=== PATIENT | female | born 1980 | race Hispanic/Latino ===

== ENCOUNTER 2017-03-13 21:00 | Inpatient (IN) | payer OTHER ==
--- NOTE | 2017-03-13 21:04 | Emergency Department Report ---
HPI - General Time Seen by Provider: 03/13/17 21:02 - HPI HPI: This is a 36-year-old female who presents the emergency department by EMS from home with complaint of suspected stroke. The patient was last seen normal around 7:45 PM. The called EMS when he noticed the patient was having left-sided weakness and trouble speaking. She has a past medical history of hypertension but is noncompliant with her medications and presents with elevated blood pressure. The patient doesn't fact have some trouble getting words out and therefore is a poor historian. She also does display some left-sided weakness. She did not receive anything for symptoms prior to presentation nor in route. ED Past Medical Hx - Medications Home Medications: Home Medications Medication Instructions Recorded Confirmed Last Taken Type No Known Home Medications [No 03/13/17 03/13/17 Unknown History Reported Home Medications] ED Review of Systems ROS: Stated complaint: POSS STROKE Other details as noted in HPI Comment: All other systems reviewed and negative Constitutional: denies: chills, fever Eyes: denies: eye pain, eye discharge, vision change ENT: denies: ear pain, throat pain Respiratory: denies: cough, shortness of breath, wheezing Cardiovascular: denies: chest pain, palpitations Gastrointestinal: denies: abdominal pain, nausea, diarrhea Genitourinary: denies: urgency, dysuria, discharge Musculoskeletal: denies: back pain, joint swelling, arthralgia Skin: denies: rash, lesions Neurological: headache, weakness, other (aphasia) Physical Exam - Physical Exam Physical Exam: GENERAL: The patient is well-developed well-nourished. HEENT: Normocephalic. Atraumatic. Extraocular motions are intact. Patient has moist mucous membranes. Pupils equal reactive to light bilaterally. Patient has fatigable horizontal nystagmus. There is no gaze preference. NECK: Supple. Trachea is midline. CHEST/LUNGS: Clear to auscultation. There is no respiratory distress noted. HEART/CARDIOVASCULAR: Regular. There is no tachycardia. There is no gallop rub or murmur. ABDOMEN: Abdomen is soft, nontender. Patient has normal bowel sounds. There is no abdominal distention. SKIN: Skin is warm and dry. NEURO: The patient is awake, alert, and oriented. The patient is cooperative. The patient has stuttering speech. There is almost complete flaccid paralysis of the left upper extremity. She is able to lift up her left lower extremity off the gurney but is unable to keep it elevated and falls back to the gurney. There is subjective decreased sensation to the left side of the body when compared to the right. MUSCULOSKELETAL: There is no tenderness or deformity. There is no limitation range of motion. There is no evidence of acute injury. ED Course - Consultations Consultation #1: I spoke with the telemedicine neurologist, Dr. Fortune, who then did a consultation via the telemedicine screen in the room. He then just called back and says that this appears more consistent with something like a complex migraine but suggested a stat CT angiography of the head and neck. There is some type of occlusion or thrombus seen, he is to be recontacted, otherwise the patient should be admitted to the hospital and have an MRI and further evaluation. 03/13/17 21:44 ED Medical Decision Making - Lab Data Result diagrams: 03/13/17 21:00 03/13/17 21:00 - EKG Data -: EKG Interpreted by Mi EKG shows normal: sinus rhythm, axis, intervals, QRS complexes, ST-T waves Rate: normal - EKG Data When compared to previous EKG there are: previous EKG unavailable Interpretation: normal EKG - Radiology Data Radiology results: report reviewed CT of the head does not show any acute process including no hemorrhage, mass, shift, diffuse edema or skull fracture. CT angiography of the head and neck does not show any bleed, thrombus or occlusion, or any acute process. - Medical Decision Making 36-year-old female presents with left-sided deficits as well as a left-sided headache with concern for an acute CVA. The patient would have been in the TPA window, but was seen by the telemedicine neurologist Dr. Fortune who did not feel that this fits the typical picture for a CVA and therefore did not recommend TPA administration. He did recommend CT angiography of the head and neck and thinks that is most likely consistent with a complex migraine. CT of the head without contrast, CT angiography of the head and neck, all came back negative without any acute process or etiology of the patient's symptoms. She has shown some improvement. The patient has had some hypertensive issues while she has been here and has required antihypertensives. Vital signs otherwise been stable throughout her ED course including being afebrile. She will be admitted to the hospital for further evaluation and has been accepted by the hospitalist, Dr. Barnes. - Differential Diagnosis CVA, TIA, complex migraine Critical Care Time: No Critical care attestation.: If time is entered above; I have spent that time in minutes in the direct care of this critically ill patient, excluding procedure time. ED Disposition Clinical Impression: Hypertensive urgency, Left-sided sensory deficit present, Left-sided weakness Migraine Qualifiers: Migraine type: unspecified Status migrainosus presence: without status migrainosus Intractability: not intractable Qualified Code(s): G43.909 - Migraine, unspecified, not intractable, without status migrainosus Disposition: OP ADMITTED IP TO THIS HOSP Is pt being admited?: Yes Condition: Stable Time of Disposition: 01:47
[2017-03-13 21:11] LABS: Basophils % (Auto) 0.9 % (0.0-1.8); Eosinophils % (Auto) 2.7 % (0.0-4.3); Hematocrit 39.9 % (30.3-42.9); Hemoglobin 13.8 gm/dl (10.1-14.3); Mean Corpuscular HGB Conc 35 % (30-34); Mean Corpuscular Hemoglobin 30 pg (28-32); Mean Corpuscular Volume 87 fl (79-97); Platelet Count 273 K/mm3 (140-440); Red Blood Count 4.59 M/mm3 (3.65-5.03); White Blood Count 9.3 K/mm3 (4.5-11.0)
[2017-03-13 21:21] LABS: INR 1.06 (0.87-1.13)
[2017-03-13 21:22] LABS: Partial Thromboplastin Time 30.9 Sec. (24.2-36.6)
--- NOTE | 2017-03-13 21:23 | Cat Scan Report ---
FINAL REPORT PROCEDURE: CT HEAD/BRAIN WO CON TECHNIQUE: Computerized tomography of the head was performed without contrast material. HISTORY: suspected stroke COMPARISON: No prior studies are available for comparison. FINDINGS: Skull and scalp: Normal. Paranasal sinuses: Normal. Ventricles and subarachnoid spaces: Normal. Cerebrum: No evidence of hemorrhage, acute infarction or mass . Cerebellum and brainstem: No evidence of hemorrhage, acute infarction or mass. Vasculature: Normal. Comments: None. IMPRESSION: Normal Examination
--- NOTE | 2017-03-13 21:30 | Admit Criteria Form ---
Admission Criteria Documentation: HYPERTENSION Clinical Indications for Admission to Inpatient Care ( Place "X" for any and all applicable criteria): Admission is indicated for ANY ONE of the following(1)(2)(3)(4): [ ]I. Hypertensive emergency, with evidence of acute and progressing target organ disease as indicated by ANY ONE of the following: [ ]a) Hypertensive encephalopathy (eg, confusion, altered mental status) [ ]b) Cerebral infarction [ ]c) Intracranial hemorrhage [ ]d) Myocardial ischemia or infarction [ ]e) Pulmonary edema [ ]f) Aortic dissection [ ]g) Seizure [ ]h) Acute renal insufficiency [ ]i) Papilledema [ ]j) Microangiopathic hemolytic anemia [ ]II. Adrenergic crisis (eg, severe hypertension due to pheochromocytoma crisis, cocaine or amphetamine intoxication, or clonidine withdrawal) [X ]III. Severe hypertension (SBP greater than 180 mmHg or DBP greater than 110 mmHg or greater than the 95th percentile for age, gender, and height in pediatric patients) that cannot be controlled (eg, to SBP less than 160 mmHg and DBP less than 100 mmHg in adults) by treatment with oral medication in emergency department or observation care Extended stay beyond goal length of stay may be needed for(11)(12)(13): [ ]a) Persistent hypertensive encephalopathy [ ]b) Continuation of pulmonary edema [ ]c) Recurring or persistent severe hypertension [ ]d) Target organ damage (eg, angina, stroke, aortic dissection) [ ]e) Associated renal insufficiency The original [employer] content created by [employer] has been revised. The portions of the content which have been revised are identified through the use of italic text or in bold, and [facility] has neither reviewed nor approved the modified material. All other unmodified content is copyright [employer] [employer]. Please see references footnoted in the original [employer] [facility] [employer] edition 2016 Admission Criteria Met: Yes
[2017-03-13 21:31] LABS: Alanine Aminotransferase 11 units/L (7-56); Albumin 3.9 g/dL (3.9-5); Albumin/Globulin Ratio 1.6 %; Alkaline Phosphatase 99 units/L (35-129); Anion Gap 16 mmol/L; Blood Urea Nitrogen 15 mg/dL (7-17); Calcium 8.8 mg/dL (8.4-10.2); Carbon Dioxide 22 mmol/L (22-30); Chloride 104.2 mmol/L (98-107); Creatine Kinase 65 units/L (30-135); Glucose 111 mg/dL (65-100); Potassium 3.6 mmol/L (3.6-5.0); Sodium 139 mmol/L (137-145); Total Protein 6.4 g/dL (6.3-8.2)
[2017-03-13 21:33] LABS: Creatine Kinase MB < 1.0 ng/mL (0.0-4.0)
[2017-03-13] MEDS ORDERED: NACL ONE (22:15)
[2017-03-13] MEDS ORDERED: MORPHINE IV ONE ×2 (22:15→23:41)
[2017-03-13] MEDS ORDERED: MORPHINE ONE (22:20)
--- NOTE | 2017-03-14 00:10 | Cat Scan Report ---
FINAL REPORT PROCEDURE: CT ANGIO HEAD TECHNIQUE: Computerized tomographic angiography of the head was performed after the IV injection of iodinated nonionic contrast including image processing. The image data was postprocessed using 2-dimensional multiplanar reformatted (MPR) and 3-dimensional (MIP and/or volume rendered) techniques. HISTORY: left sided weakness COMPARISON: No prior studies are available for comparison. FINDINGS: Cerebrum: No evidence of hemorrhage, acute ischemia or mass. Cerebellum: No evidence of hemorrhage, acute ischemia or mass. Subarachnoid spaces and ventricles: Normal. Intracranial vessels: Carotid siphon: Normal. Anterior cerebral: Normal. Middle cerebral: Normal. Posterior cerebral:Normal. Vertebral arteries including basilar: The left vertebral artery is dominant. The basilar artery is normal. Aneurysms: None. Dural sinuses: Normal. IMPRESSION: Normal Examination.
--- NOTE | 2017-03-14 00:29 | Cat Scan Report ---
FINAL REPORT PROCEDURE: CT ANGIO NECK TECHNIQUE: Computerized tomographic angiography of the neck was performed after the IV injection of iodinated nonionic contrast including image processing. The image data was postprocessed using 2-dimensional multiplanar reformatted (MPR) and 3-dimensional (MIP and/or volume rendered) techniques. HISTORY: left sided weakness COMPARISON: No prior studies are available for comparison. Note: Assessment of carotid artery stenosis is based on measurement of the distal internal carotid artery diameter as the denominator for stenosis calculations and the [place] Symptomatic Carotid Endarterectomy Trial (NASCET) stenosis criteria . CPT 3100F FINDINGS: Sinuses: Normal . Non vascular cervical structures: No significant abnormality . Aortic arch: Normal . Right carotid artery: Normal . Left carotid artery: Normal . Vertebral arteries: The left vertebral artery is dominant.. IMPRESSION: Normal Examination
[2017-03-14 02:38] LABS: Urine Drugs of Abuse Note Disclamer
[2017-03-14 02:46] LABS: Bilirubin,Urine NEG (Negative); Blood,Urine NEG (Negative); Ketones,Urine NEG (Negative); Leukocyte Esterase,Urine TR (Negative); Mucus,Urine 1+ /HPF; Nitrite,Urine NEG (Negative); Protein,Urine <15 mg/dL mg/dL (Negative); Urobilinogen,Urine < 2.0 mg/dL (<2.0)
[2017-03-14] MEDS ORDERED: APRESOLINE IV PRN (02:52)
[2017-03-14] MEDS ORDERED: MILK OF MAGNESIA PO PRN (02:52)
[2017-03-14] MEDS ORDERED: DULCOLAX PR PRN (02:52)
[2017-03-14] MEDS ORDERED: ZOFRAN IV PRN (02:52)
[2017-03-14] MEDS ORDERED: TYLENOL PO PRN (02:52)
[2017-03-14] MEDS ORDERED: SODIUM CHLORIDE FLUSH SYRINGE 10 ML IV PRN (02:52)
--- NOTE | 2017-03-14 02:57 | History and Physical Report ---
History of Present Illness Date of examination: 03/14/17 History of present illness: 36-year-old woman with a history of sciatica, endometriosis, chronic back pain, depression, anxiety comes emergency room with complaints of left-sided weakness and numbness. Patient stated over the last 2 weeks she has been feeling fatigued, palpitation. She checked her blood [facility] at [facility], it was systolic 180s on 2 occasions. Today her fatigue worsened, also experienced numbness of the left side, weakness, dizziness and headache on the left with more patient. She had difficulty expressing herself. Patient denies chest pain, shortness of breath, cough, abdominal pain, hematochezia, dysuria, frequency, dysarthria, fever chills, polydipsia polyuria , hot or cold intolerance, easy bruisability, or rash or bleeding from mucosal membrane, rhinorrhea, epistaxis, earache, tinnitus, blurry vision, eye discharge , Other review of systems negative PAST SURGICAL HISTORY: 2, cholecystectomy, appendectomy, tonsillectomy SOCIAL HISTORY:smoke half pack a day, occasional alcohol, no drugs FAMILY HISTORY: Hypertension Medications and Allergies Allergies Allergy/AdvReac Type Severity Reaction Status Date / Time No Known Allergies Allergy Unverified 03/13/17 21:04 Home Medications Medication Instructions Recorded Confirmed Last Taken Type No Known Home Medications [No 03/13/17 03/13/17 Unknown History Reported Home Medications] Exam - Physical Exam Narrative exam: Gen. appearance: Patient lying in bed, no apparent distress HEENT: Normocephalic, atraumatic, pupils equally round and reactive to light, extraocular movement intact, and no sclericterus,. No JVD or thyromegaly or nodule,neck supple, no carotid bruit ,mucous membranes moist, no exudate or erythema Heart: S1, S2, regular rate and rhythm Lungs: Clear to auscultation bilaterally, breathing comfortable Abdomen: Positive bowel sounds, nontender, nondistended, no organomegaly Extremity: No edema, cyanosis, clubbing Skin: No rash, nodules, warm, dry Neuro: Oriented 3, cranial nerves II-12 intact, speech is fluent, left upper and lower extremity 4 over 5 , decreased sensation on the left - Constitutional Vitals: Temp Pulse Resp BP Pulse Ox 98.4 F 96 H 20 134/60 99 03/13/17 21:15 03/14/17 01:41 03/14/17 01:41 03/14/17 01:41 03/14/17 01:41 Results - Labs CBC & Chem 7: 03/13/17 21:00 03/13/17 21:00 Labs: Abnormal lab results 03/13/17 03/13/17 03/14/17 Range/Units 21:00 21:00 02:30 MCHC 35 H (30-34) % Creatinine 0.6 L (0.7-1.2) mg/dL Glucose 111 H (65-100) mg/dL Ur Specific [place] 1.060 H (1.003-1.030) - Imaging and Cardiology EKG: image reviewed CT Scan - head: report reviewed Assessment and Plan CTA head and neck normal CVA versus hypertensive urgency Hypertension malignant, new onset Depression Anxiety Obesity Chronic back pain History of endometriosis Admits medicine Do neurochecks, swallow screen Start IV hydralazine as needed for blood pressure control Obtain MRI of the head, echo Consult neurology physical, occupational therapy Aspirin, statin, DVT prophylaxis
[2017-03-14 03:38] LABS: Creatine Kinase 60 units/L (30-135)
[2017-03-14 03:46] LABS: Creatine Kinase MB < 1.0 ng/mL (0.0-4.0)
[2017-03-14] MEDS ORDERED: NORCO 10/325 PO ONE (06:30)
--- NOTE | 2017-03-14 07:34 | XRay Report ---
PORTABLE CHEST: CVA protocol An AP portable view of the chest demonstrates a normal cardiac contour considering the limits of this technique. The lungs are clear with no evidence of infiltrate, fluid or failure. IMPRESSION: Normal portable chest.
--- NOTE | 2017-03-14 09:59 | Magnetic Resonance Report ---
MRI of the brain without contrast. History: Stroke. Procedure: Routine brain protocol without contrast Findings: The posterior fossa is normal. The ventricles are normal in size and contour. There are no masses or extra-axial collections. There are no areas of restricted diffusion. The roberts-white matter junction is normal. The pituitary gland is normal. The visualized extremity structures are unremarkable. Impression: Normal study.
[2017-03-14] MEDS ORDERED: ASPIRIN PO SCH (10:00)
[2017-03-14] MEDS ORDERED: LOVENOX SUB-Q SCH (10:00)
--- NOTE | 2017-03-14 14:04 | History and Physical Report ---
History of Present Illness Date of examination: 03/14/17 Date of admission: 03/14/17 02:52 Chief complaint: headache, left side numbness and weakness. History of present illness: 36-year-old right haned female with a past medical history of sciatica , endometriosis, chronic back pain, depression, anxiety comes emergency room with complaints of left-sided weakness and numbness. Patient stated over the last 2 weeks she has been feeling fatigued, palpitation. She checked her blood pressure at [facility], it was systolic 180s on 2 occasions. Yesterday her fatigue worsened, also experienced numbness of the left side, weakness, dizziness and headache on the left. She also complaints of left side vision blurry. Per admission physician, she has broken speech when she was in the ER. Right now her speech is better. She is stable and improved after admission. Past History Past Medical History: other (chronic pains, depression, 36-year-old woman with a history of sciatica, endometriosis, chronic back pain, depression, anxiety. ) Past Surgical History: appendectomy, cholecystectomy, , Other (Foot surgery.) Social history: smoking, other (drink alcohol. No illicit drug abuse.) Family history: CAD, cancer, diabetes, hypertension, stroke Medications and Allergies Allergies Allergy/AdvReac Type Severity Reaction Status Date / Time No Known Allergies Allergy Unverified 03/13/17 21:04 Home Medications Medication Instructions Recorded Confirmed Last Taken Type Diazepam Tab [Valium] 2 mg PO 03/14/17 Unknown History HYDROcodone/APAP 10-325 [[place] 1 each PO Q6HR PRN 03/14/17 03/14/17 Unknown History 10] Ibuprofen [Motrin 800 MG tab] 800 mg PO Q8H PRN 03/14/17 03/14/17 Unknown History Naprosyn 03/14/17 Unknown History busPIRone [Buspar] 03/14/17 Unknown History Active Meds: Active Medications Acetaminophen (Tylenol) 650 mg PO Q4H PRN PRN Reason: Pain, Mild (1-3) Aspirin (Aspirin) 325 mg PO QDAY [facility] Last Admin: 03/14/17 11:25 Dose: Not Given Bisacodyl (Dulcolax) 10 mg AK QDAY PRN PRN Reason: Constipation Enoxaparin Sodium (Lovenox) 40 mg SUB-Q QDAY [facility] Last Admin: 03/14/17 11:23 Dose: 40 mg Hydralazine HCl (Apresoline) 5 mg IV Q6H PRN PRN Reason: Keep SBP between 160-185 mm Hg Magnesium Hydroxide (Milk Of Magnesia) 30 ml PO Q4H PRN PRN Reason: Constipation Ondansetron HCl (Zofran) 4 mg IV Q8H PRN PRN Reason: N/V unrelieved by Reglan Simvastatin (Zocor) 20 mg PO QHS [facility] Sodium Chloride (Sodium Chloride Flush Syringe 10 Ml) 10 ml IV PRN PRN PRN Reason: LINE FLUSH Review of Systems All systems: negative (obesity, left side weakness and numbness, Left side vision loss.) Physical Examination - Vital Signs Vital Signs: Vital Signs Temp Pulse Resp BP Pulse Ox 98.4 F 86 18 145/80 99 03/13/17 21:15 03/13/17 21:15 03/13/17 21:15 03/13/17 21:15 03/13/17 21:15 - Constitutional General appearance: comfortable - EENT EENT: Present: PERRL, TM abnormal - Respiratory Respiratory: Present: lungs clear, normal breath sounds, no respiratory distress - Cardiovascular Cardiovascular: Present: regular rate, normal S1, normal S2 Extremities: Present: no peripheral edema bilatateraly, no clubbing, cyanosis, no inflammation - Gastrointestinal Gastrointestinal: Present: soft, non-tender, tender - Integumentary Integumentary: Present: normal - Neurologic Cranial nerve examination: PERRL, EOMI Speech examination: intact Detailed motor examination: grossly full strength in Motor examination - right side: 5/5: biceps, triceps, wrist flexion, wrist extension, cotton bag sewer, hip flexors, knee extensors, dorsiflexion, toe extension (EHL) , plantarflexion Motor examination - left side: 3/5: biceps, triceps, wrist flexion, wrist extension, cotton bag sewer, hip flexors, knee extensors, dorsiflexion, toe extension (EHL) , plantarflexion Detailed sensory examination: other (Left side hemiparesthesia.) Reflexes: 1+: ankle Results - Laboratory Findings CBC and BMP: 03/13/17 21:00 03/13/17 21:00 Assessment and Plan 1. Probably complex migraine headache. 2. Morbid obesity. 3. H/P depression and anxiety. 4. Chronic pains. Suggestions: 1. B12 and TSH. 2. PRN headache medicine. 3. Lose weight and exercise. 4. If needed, depression medicines. 5. DVT prophylaxis. 6. OT/PT, rehab. 7. Plan discussed with her. 8. Will follow up with you.
[2017-03-14 14:42] VITALS: BP 117/70
--- NOTE | 2017-03-14 15:34 | Discharge Summary ---
Providers - Providers Date of Admission: 03/14/17 02:52 Attending physician: NATALIIA ARGUETA MD Primary care physician: [employer] Hospitalization Condition: Stable Hospital course: 36-year-old woman with past medical history of migraine headaches and depression /anxiety disorder presented with one-day history of headache and left-sided weakness, left-sided hemiparesis, she was admitted under stroke protocol, she went on to have an MRI of her brain that was negative for stroke and echocardiogram that was within normal limits. Her symptoms are most likely due to complex migraine, she was given appropriate analgesics and given a referral to a neurologist and a psychiatrist Discharge diagnoses 1. Complex migraine with transient left hemiparesis Disposition: DISCHARGED TO HOME OR SELFCARE Time spent for discharge: 35 minutes Core Measure Documentation - Palliative Care Palliative Care/ Comfort Measures: Not Applicable - Core Measures Any of the following diagnoses?: none Exam - Constitutional Vitals: Temp Pulse Resp BP Pulse Ox 98.1 F 72 20 117/70 98 03/14/17 12:10 03/14/17 12:10 03/14/17 12:10 03/14/17 12:10 03/14/17 12:10 General appearance: Present: no acute distress, well-nourished - EENT Eyes: Present: PERRL ENT: hearing intact, clear oral mucosa - Neck Neck: Present: supple, normal ROM - Respiratory Respiratory effort: normal Respiratory: bilateral: CTA - Cardiovascular Heart Sounds: Present: S1 & S2. Absent: rub, click - Extremities Extremities: pulses symmetrical, No edema Peripheral Pulses: within normal limits - Abdominal General gastrointestinal: Present: soft, non-tender, non-distended, normal bowel sounds Female genitourinary: Present: normal - Integumentary Integumentary: Present: clear, warm, dry - Musculoskeletal Musculoskeletal: gait normal, strength equal bilaterally - Psychiatric Psychiatric: appropriate mood/affect, intact judgment & insight - Neurologic Neurologic: CNII-XII intact, moves all extremities Plan Follow up with: PRIMARY MD ALLEGRA [Primary Care Provider] - 3-5 Days ELIN MACIAS MD [Staff Physician] - 7 Days Forms: AMA Form
[2017-03-14] MEDS ORDERED: ZOCOR PO SCH (22:00)
== END 2017-03-14 17:34 | disposition left against medical advice (07) | DRG 305 ==
LOC: ED 21:00 → 4A 03-14 02:52
PROVIDERS: ADMIT Internal Medicine; ATTEND Internal Medicine
DX: I16.0 Hypertensive urgency (principal); Z68.45 Body mass index [BMI] 70 or greater, adult; G43.909 Migraine, unspecified, not intractable, without status migrainosus; E66.01 Morbid (severe) obesity due to excess calories; G89.29 Other chronic pain; M54.9 Dorsalgia, unspecified; F32.9 Major depressive disorder, single episode, unspecified; F41.9 Anxiety disorder, unspecified; F17.210 Nicotine dependence, cigarettes, uncomplicated; I10 Essential (primary) hypertension; Z91.14 Patient's other noncompliance with medication regimen; Z90.49 Acquired absence of other specified parts of digestive tract; Z90.89 Acquired absence of other organs; Z87.39 Personal history of other diseases of the musculoskeletal system and connective tissue; Z87.42 Personal history of other diseases of the female genital tract; Z82.49 Family history of ischemic heart disease and other diseases of the circulatory system; Z83.3 Family history of diabetes mellitus; Z82.3 Family history of stroke; Z80.9 Family history of malignant neoplasm, unspecified
CPT/HCPCS: 36415; 70450; 70496; 70498; 70551; 71010; 80053; 80307; 80320; 81001; 82550; 82553; 84484; 85025; 85610; 85670; 85730; 86850; 86900; 86901; 93005; 93010; 93306; 96374; 96376; G0480; J1650; J2270; Q9967

== ENCOUNTER 2017-08-23 11:27 | Emergency (ER) | payer OTHER ==
[2017-08-23 12:05] LABS: Basophils % (Auto) 1.1 % (0.0-1.8); Eosinophils % (Auto) 1.6 % (0.0-4.3); Hematocrit 40.9 % (30.3-42.9); Hemoglobin 14.1 gm/dl (10.1-14.3); Mean Corpuscular HGB Conc 34 % (30-34); Mean Corpuscular Hemoglobin 30 pg (28-32); Mean Corpuscular Volume 86 fl (79-97); Platelet Count 265 K/mm3 (140-440); Red Blood Count 4.75 M/mm3 (3.65-5.03); Red Cell Distribution Width 14.7 % (13.2-15.2); White Blood Count 7.8 K/mm3 (4.5-11.0)
[2017-08-23 12:25] LABS: Alanine Aminotransferase 13 units/L (7-56); Albumin 4.2 g/dL (3.9-5); Albumin/Globulin Ratio 1.4 %; Alkaline Phosphatase 78 units/L (35-129); Anion Gap 17 mmol/L; BUN/Creatinine Ratio 23; Blood Urea Nitrogen 14 mg/dL (7-17); Calcium 8.7 mg/dL (8.4-10.2); Carbon Dioxide 23 mmol/L (22-30); Chloride 102.7 mmol/L (98-107); Glucose 91 mg/dL (65-100); Lipase 20 units/L (13-60); Potassium 4.4 mmol/L (3.6-5.0); Sodium 138 mmol/L (137-145); Total Protein 7.1 g/dL (6.3-8.2)
[2017-08-23 13:05] LABS: Bilirubin,Urine NEG (Negative); Blood,Urine SM (Negative); Ketones,Urine NEG (Negative); Leukocyte Esterase,Urine NEG (Negative); Mucus,Urine FEW /HPF; Nitrite,Urine NEG (Negative); Protein,Urine <15 mg/dL mg/dL (Negative); Urobilinogen,Urine < 2.0 mg/dL (<2.0)
--- NOTE | 2017-08-23 15:30 | Emergency Department Report ---
ED General Adult HPI - General Chief complaint: Abdominal Pain Stated complaint: PELVIC PAIN Time Seen by Provider: 08/23/17 14:02 Source: patient Mode of arrival: Ambulatory Limitations: No Limitations - History of Present Illness Initial comments: Patient is a 37-year-old female past medical history of chronic pelvic pain HPV and morbid obesity who presents with chronic pelvic pain. Patient states pain is a 10 out of 10 she states that the pain has been going on for the last 3 days. She states that nothing makes the pain better she also states that the pain has been worse for the last 3 days which is why she is here. She states that she was scheduled to see by her DATA MANAGEMENT SPECIALIST today but she was sent to the ER because her pain was really bad. Patient denies having any shortness of breath she is having some white discharge. Patient states that her DATA MANAGEMENT SPECIALIST was unable to visualize her cervix on pelvic exam. So she is refusing pelvic exam. - Related Data Home Medications Medication Instructions Recorded Confirmed Last Taken Diazepam Tab [Valium] 2 mg PO 03/14/17 Unknown HYDROcodone/APAP 10-325 [[place] 1 each PO Q6HR PRN 03/14/17 03/14/17 Unknown 10-325 mg TAB] Ibuprofen [Motrin 800 MG tab] 800 mg PO Q8H PRN 03/14/17 03/14/17 Unknown busPIRone [Buspar] 03/14/17 Unknown Previous Rx's Medication Instructions Recorded Last Taken Type Oxycodone HCl/Acetaminophen 1 each PO Q6HR PRN #5 tablet 08/23/17 Unknown Rx [Percocet 7.5/325 mg] Allergies Allergy/AdvReac Type Severity Reaction Status Date / Time No Known Allergies Allergy Unverified 03/13/17 21:04 ED Review of Systems ROS: Stated complaint: PELVIC PAIN Other details as noted in HPI Constitutional: denies: chills, fever Eyes: denies: eye pain, eye discharge, vision change ENT: denies: ear pain, throat pain Respiratory: denies: cough, shortness of breath, wheezing Cardiovascular: denies: chest pain, palpitations Endocrine: no symptoms reported Gastrointestinal: denies: abdominal pain, nausea, diarrhea Genitourinary: as per HPI, discharge. denies: urgency, dysuria Musculoskeletal: denies: back pain, joint swelling, arthralgia Skin: denies: rash, lesions Neurological: denies: headache, weakness, paresthesias Psychiatric: denies: anxiety, depression Hematological/Lymphatic: denies: easy bleeding, easy bruising ED Past Medical Hx - Past Medical History Previous Medical History?: Yes Hx Hypertension: No (pt denies) Hx Psychiatric Treatment: Yes (depression) Additional medical history: HPV - Surgical History Past Surgical History?: Yes Hx Cholecystectomy: Yes Hx Appendectomy: Yes Additional Surgical History: ovarian cyst drained. tubal ligation. x2 - Social History Smoking Status: Current Every Day Smoker Substance Use Type: None - Medications Home Medications: Home Medications Medication Instructions Recorded Confirmed Last Taken Type Diazepam Tab [Valium] 2 mg PO 03/14/17 Unknown History HYDROcodone/APAP 10-325 [[place] 1 each PO Q6HR PRN 03/14/17 03/14/17 Unknown History 10-325 mg TAB] Ibuprofen [Motrin 800 MG tab] 800 mg PO Q8H PRN 03/14/17 03/14/17 Unknown History busPIRone [Buspar] 03/14/17 Unknown History Oxycodone HCl/Acetaminophen 1 each PO Q6HR PRN #5 tablet 08/23/17 Unknown Rx [Percocet 7.5/325 mg] ED Physical Exam - General Limitations: No Limitations General appearance: alert, in no apparent distress - Head Head exam: Present: atraumatic, normocephalic - Eye Eye exam: Present: normal appearance - ENT ENT exam: Present: mucous membranes moist - Neck Neck exam: Present: normal inspection - Respiratory Respiratory exam: Present: normal lung sounds bilaterally. Absent: respiratory distress - Cardiovascular Cardiovascular Exam: Present: regular rate, normal rhythm. Absent: systolic murmur, diastolic murmur, rubs, gallop - GI/Abdominal GI/Abdominal exam: Present: soft, normal bowel sounds - Extremities Exam Extremities exam: Present: other (slight upper leg swelling) - Back Exam Back exam: Present: normal inspection - Neurological Exam Neurological exam: Present: alert, oriented X3 - Psychiatric Psychiatric exam: Present: normal affect, normal mood - Skin Skin exam: Present: warm, dry, intact, normal color. Absent: rash ED Course Vital Signs 08/23/17 08/23/17 08/23/17 11:42 11:47 17:07 Temperature 98.4 F Pulse Rate 92 H Respiratory 22 20 Rate Blood Pressure 111/78 [Left] O2 Sat by Pulse 99 Oximetry 08/23/17 17:50 Temperature 97.5 F L Pulse Rate 81 Respiratory 20 Rate Blood Pressure 158/102 [Left] O2 Sat by Pulse 97 Oximetry ED Medical Decision Making - Lab Data Result diagrams: 08/23/17 11:50 08/23/17 11:50 Lab Results 08/23/17 08/23/17 08/23/17 Range/Units 11:50 11:50 12:11 WBC 7.8 (4.5-11.0) K/mm3 RBC 4.75 (3.65-5.03) M/mm3 Hgb 14.1 (10.1-14.3) gm/dl Hct 40.9 (30.3-42.9) % MCV 86 (79-97) fl MCH 30 (28-32) pg MCHC 34 (30-34) % RDW 14.7 (13.2-15.2) % Plt Count 265 (140-440) K/mm3 Lymph % (Auto) 23.3 (13.4-35.0) % [place] % (Auto) 4.9 (0.0-7.3) % Eos % (Auto) 1.6 (0.0-4.3) % Baso % (Auto) 1.1 (0.0-1.8) % Lymph # 1.8 (1.2-5.4) K/mm3 [place] # 0.4 (0.0-0.8) K/mm3 Eos # 0.1 (0.0-0.4) K/mm3 Baso # 0.1 (0.0-0.1) K/mm3 Seg Neutrophils % 69.1 (40.0-70.0) % Seg Neutrophils # 5.4 (1.8-7.7) K/mm3 Sodium 138 (137-145) mmol/L Potassium 4.4 (3.6-5.0) mmol/L Chloride 102.7 (98-107) mmol/L Carbon Dioxide 23 (22-30) mmol/L Anion Gap 17 mmol/L BUN 14 (7-17) mg/dL Creatinine 0.6 L (0.7-1.2) mg/dL Estimated GFR > 60 ml/min BUN/Creatinine Ratio 23 % Glucose 91 (65-100) mg/dL Calcium 8.7 (8.4-10.2) mg/dL Total Bilirubin 0.40 (0.1-1.2) mg/dL AST 16 (5-40) units/L ALT 13 (7-56) units/L Alkaline Phosphatase 78 (35-129) units/L Total Protein 7.1 (6.3-8.2) g/dL Albumin 4.2 (3.9-5) g/dL Albumin/Globulin Ratio 1.4 % Lipase 20 (13-60) units/L Urine Color Yellow (Yellow) Urine Turbidity Clear (Clear) Urine pH 5.0 (5.0-7.0) Ur Specific [place] 1.020 (1.003-1.030) Urine Protein <15 mg/dl (Negative) mg/dL Urine Glucose (UA) Neg (Negative) mg/dL Urine Ketones Neg (Negative) mg/dL Urine Blood Sm (Negative) Urine Nitrite Neg (Negative) Urine Bilirubin Neg (Negative) Urine Urobilinogen < 2.0 (<2.0) mg/dL Ur Leukocyte Esterase Neg (Negative) Urine WBC (Auto) 1.0 (0.0-6.0) /HPF Urine RBC (Auto) 1.0 (0.0-6.0) /HPF U Epithel Cells (Auto) 2.0 (0-13.0) /HPF Urine Mucus Few /HPF - Medical Decision Making Chief medical diagnosis: Chronic pelvic pain Differential multiple diagnosis: Gonorrhea infection, Chylamidia infection, yeast infection, UTI I will get a UA, CBC, CMP oral pain medication IM antibiotics and oral antibiotics and oral Diflucan, ARMINDA urine gonorrhea and a ARMINDA urine chlamydia Patient has improvement of pain after oral Percocet I will send patient home and follow up with her DATA MANAGEMENT SPECIALIST. Also patient only on a small dose of Percocet as it was able to relieve a lot of her pain. Due to patient refusing pelvic exam I will empirically treat her for causes of infection. Patient's lab work is unremarkable patient urine work is unremarkable patient will be sent home a small dose of Percocet. Discussed outpatient she agrees plan and states that she will follow-up get a ultrasound of her uterus on Sunday. Additional verbal discharge instructions. Critical care attestation.: If time is entered above; I have spent that time in minutes in the direct care of this critically ill patient, excluding procedure time. ED Disposition Clinical Impression: Chronic pelvic pain in female Upper leg pain Qualifiers: Laterality: right Qualified Code(s): M79.651 - Pain in right thigh Disposition: - TO HOME OR SELFCARE Is pt being admited?: No Does the pt Need Aspirin: No Condition: Stable Instructions: Chronic Pelvic Pain in Women (ED), Abdominal Pain (ED) Prescriptions: Oxycodone HCl/Acetaminophen [Percocet 7.5/325 mg] 1 each PO Q6HR PRN #5 tablet PRN Reason: Pain
[2017-08-23] MEDS ORDERED: XYLOCAINE 1% MPF 5 mL INFILTRATI ONE (15:31)
[2017-08-23] MEDS ORDERED: ROCEPHIN IM ONE (15:31)
[2017-08-23] MEDS ORDERED: ZITHROMAX PO ONE (15:32)
[2017-08-23] MEDS ORDERED: PERCOCET 5/325 PO ONE (15:32)
[2017-08-23] MEDS ORDERED: DIFLUCAN PO ONE (16:00)
[2017-08-23] MEDS ORDERED: NAPROSYN PO ONE (16:00)
[2017-08-23 17:52] VITALS: BP 158/102
== END 2017-08-23 17:58 | disposition home or self-care (01) ==
LOC: ED 11:27
DX: R10.2 Pelvic and perineal pain (principal); M79.651 Pain in right thigh; G89.29 Other chronic pain; I10 Essential (primary) hypertension; F32.9 Major depressive disorder, single episode, unspecified; F17.200 Nicotine dependence, unspecified, uncomplicated; Z90.49 Acquired absence of other specified parts of digestive tract
CPT/HCPCS: 36415; 80053; 81001; 81025; 83690; 85025; 87591; 96372; 99283; J0696

== ENCOUNTER 2018-02-05 06:11 | Observation (INO) | payer OTHER ==
[2018-01-30 12:56] LABS: Basophils # (Auto) 0.1 K/mm3 (0.0-0.1); Basophils % (Auto) 0.6 % (0.0-1.8); Eosinophils # (Auto) 0.1 K/mm3 (0.0-0.4); Eosinophils % (Auto) 0.9 % (0.0-4.3); Hematocrit 41.9 % (30.3-42.9); Hemoglobin 13.8 gm/dl (10.1-14.3); Lymphocytes # (Auto) 1.7 K/mm3 (1.2-5.4); Lymphocytes % (Auto) 18.5 % (13.4-35.0); Mean Corpuscular HGB Conc 33 % (30-34); Mean Corpuscular Hemoglobin 29 pg (28-32); Mean Corpuscular Volume 87 fl (79-97); Monocytes # (Auto) 0.4 K/mm3 (0.0-0.8); Platelet Count 326 K/mm3 (140-440); Red Blood Count 4.83 M/mm3 (3.65-5.03); Red Cell Distribution Width 14.9 % (13.2-15.2)
--- NOTE | 2018-01-30 13:30 | Anesthesia Consultation ---
Anesthesia Consult and Med Hx Date of service: 01/30/18 - Airway Anesthetic Teeth Evaluation: Poor (several missing - several broken), Chipped ROM Head & Neck: Adequate Mental/Hyoid Distance: Adequate Mallampati Class: Class II Intubation Access Assessment: Probably Good - Pulmonary Exam CTA: Yes - Cardiac Exam Cardiac Exam: RRR - Pre-Operative Health Status ASA Pre-Surgery Classification: ASA3 Proposed Anesthetic Plan: General - Pulmonary Hx Smoking: Yes (currently down to 1/3 PPD, 20 years) - Cardiovascular System Hx Hypertension: No (pt denies) - Central Nervous System Hx Back Pain: Yes (with sciatica) - Gastrointestinal Hx Gastroesophageal Reflux Disease: Yes (occasional) - Endocrine Hx Renal Disease: No Hx Non-Insulin Dependent Diabetes: No Hx Thyroid Disease: No - Other Systems Hx Alcohol Use: Yes (occasional) Hx Substance Use: No (denies) Hx Obesity: Yes
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
[~2018-02-05 06:11] MED LIST: CEFAZOLIN IV SCH; MARCAINE 0.5% INFILTRATI NR; NACL 0.9% 1000 ML 1,000 ML IV SCH; NACL 0.9% IV SCH; NACL P/F VIAL (10 ML) INFILTRATI NR; PEPCID IV NR; SUBLIMAZE IV ONE; VERSED IV NR; XYLOCAINE 1% 20 mL INFILTRATI NR
[2018-02-05] MEDS ORDERED: NACL BACTERIOSTATIC INFILTRATI ONE (06:48)
[2018-02-05] MEDS ORDERED: SUBLIMAZE IV ONE (07:00)
[2018-02-05] MEDS ORDERED: PEPCID PO NR (07:16)
[2018-02-05] MEDS ORDERED: ZOFRAN IV NR (07:17)
[2018-02-05] MEDS ORDERED: VERSED IV NR (07:17)
[2018-02-05] MEDS ORDERED: NEURONTIN PO SCH (07:17)
[2018-02-05] MEDS ORDERED: NEOSPORIN GU IR ONE ×2 (07:22→10:17)
[2018-02-05] MEDS ORDERED: ANCEF IV SCH ×2 (07:30)
[2018-02-05] MEDS ORDERED: NACL 0.9% IV SCH ×2 (07:30)
[2018-02-05] MEDS ORDERED: ZEMURON IV ONE (07:35)
[2018-02-05] MEDS ORDERED: XYLOCAINE MPF 2% ONE (07:35)
[2018-02-05] MEDS ORDERED: DIPRIVAN 10 MG/ML IV ONE (07:35)
[2018-02-05] MEDS ORDERED: DILAUDID ONE (07:36)
[2018-02-05 07:44] LABS: Alanine Aminotransferase 16 units/L (7-56); BUN/Creatinine Ratio 22; Blood Urea Nitrogen 13 mg/dL (7-17); Calcium 8.7 mg/dL (8.4-10.2); Hemolysis Index 26
[2018-02-05] MEDS ORDERED: CALCIUM CHLORIDE IV ONE (08:42)
[2018-02-05] MEDS ORDERED: THROMBIN (BOVINE) TP ONE (08:42)
[2018-02-05] MEDS ORDERED: MARCAINE 0.5% 30 ML INFILTRATI ONE (08:59)
[2018-02-05] MEDS ORDERED: ROBINUL ONE (10:04)
[2018-02-05] MEDS ORDERED: ZOFRAN ONE (10:04)
[2018-02-05] MEDS ORDERED: NEOSTIGMINE ONE (10:04)
[2018-02-05] MEDS ORDERED: NACL 0.9% 1000 ML 1,000 ML ONE (10:10)
[2018-02-05] MEDS ORDERED: WATER FOR IRRIG STERILE IR ONE (10:16)
[2018-02-05] MEDS ORDERED: MARCAINE 0.5% INFILTRATI ONE (10:17)
[2018-02-05] MEDS ORDERED: NACL 0.9% IR ONE (10:17)
[2018-02-05] MEDS ORDERED: DILAUDID IV PRN (10:42)
[2018-02-05] MEDS ORDERED: TORADOL ONE (10:44)
[2018-02-05] MEDS ORDERED: TORADOL IV NR (10:45)
[2018-02-05] MEDS: DILAUDID IV PRN ×4 (10:46→11:28)
--- NOTE | 2018-02-05 11:37 | Operative Report ---
Operative Report Operative Report: Date: 02/05/2018 Preoperative diagnosis: 1. Menorrhagia 2. Severe pelvic pain 3. Deep dyspareunia 4. History of endometriosis 5. Right multicystic ovary 6. Body mass index 53 Postoperative diagnosis: 1. Menorrhagia 2. Severe pelvic pain 3. Deep dyspareunia 4. Endometriosis 5. Bilateral multicystic ovaries 6. Body mass index 53 7. Pelvic adhesions Procedure: 1. Robotic-assisted laparoscopic total hysterectomy 2. Robotic-assisted laparoscopic bilateral salpingo-oophorectomy 3. Lysis of pelvic adhesions Surgeon: Savanah Sal MD Television Production Technician: Shena Ly Anesthesiologist: Nguyen Chaves M.D. Anesthesia: General endotracheal anesthesia EBL: Approximately minimal mL Findings: Exam under anesthesia was unremarkable. Uterus was sounded to approximately 10 cm. Bilateral multicystic ovaries. Adhesions of the bowel to the anterior uterus and cervix. Implants of endometriosis noted on the left ovary no obvious evidence of a right fallopian tube also endometrial implants were noted on the posterior pelvic side mercado bilaterally. Procedure: Patient was taken to the OR and placed in the supine position. General anesthesia was induced and an oral gastric tube was placed. Her neck and head were placed on foam support. Foam eye protection with goggles were secured in place. Then foam face protection was placed and secured. Foam shoulder pads were then positioned on her shoulders for Trendelenburg positioning. She was then placed in dorsolithotomy position. Exam under anesthesia unremarkable. The abdomen and vagina were then prepped and draped in the usual sterile fashion. Timeout was performed. A Blackman catheter was inserted into the bladder with drainage of evin-colored urine. The operative speculum was introduced into the vagina and the anterior lip of the cervix was grasped with single-toothed tenaculum. The uterus was sounded to 10 cm. The cervix was progressively dilated to allow the large V care uterine manipulator. The bulb of the manipulator was inflated and the speculum and tenaculum were removed. The cup of the manipulator was placed around the cervix and the blue occluder of the manipulator was properly positioned in the vagina. A moist laparotomy sponge that was saturated with a solution of polymyxin and saline was placed in the vagina to ensure pneumoperitoneum. Sterile gloves were placed and attention was turned to the abdomen. A 10 mm vertical supraumbilical incision was made approximately 10 cm superior to the elevated fundus of the uterus. A 12 mm trocar with the laparoscope and camera attached was introduced through this incision under direct visualization. The abdomen was insufflated. No obvious bowel, bladder, ureteral, or major vascular injury was noted. The patient was then placed in moderate Trendelenburg position and the following trochars were placed under direct visualization: 8 mm robotic trochars were placed through incisions made in the bilateral midclavicular lower abdominal region approximately 10 cm lateral and approximately 2 cm below the midline incision, and a 5 mm trocar was placed through an incision made in the right lower lateral pelvis approximately 2 cm superior to the iliac crest. The 10 mm laparoscope was then replaced by a 5 mm laparoscope that was placed through the 5 millimeter lateral trocar. The 12 mm trocar was then removed in the Elroy Rucker fascial closure device was placed through the incision and a 0 Vicryl was placed through the fascia. Once the suture was secured the 12 mm trocar was reintroduced. Once the trochars were in the appropriate positions, the da Shabbir robot system was engaged. The EndoShears and bipolar device was placed through the 8 mm trochars and positioned then attention was turned to the console. Then the utero-ovarian ligaments were clamped, cauterized and incised bilaterally using 30 W of energy. Then the round ligaments were clamped , cauterized and incised bilaterally. The anterior leaf of the broad ligament was elevated and careful blunt and sharp dissection the anterior adhesions were released in the the bladder flap was created and dissected away from the lower uterine segment and cervix. The posterior leaf of the broad ligament was dissected away from the uterine vessels. The cup of the uterine manipulator was palpated both anteriorly and posteriorly. Course of the ureters was visualized and was confirmed to be away from the operative field. The uterine vessels were then clamped and cauterized bilaterally. Blanching of the uterus was then noted. Attention was again turned to the anterior lower uterine segment and the bladder was confirmed to be away from the operative field. Then attention was turned again to the posterior where the cup of the manipulator was palpated and a colpotomy was performed down to the cup. The incision was extended in the lateral position the uterine vessels that were again clamped and cauterized and incised. Continuing along the cup of the manipulator in a circumferential manner the colpotomy was completed. The uterus and cervix were then removed through the vaginal incision. The pelvis was irrigated with warm normal saline. A moist laparotomy sponge was placed in the vagina to maintain pneumoperitoneum. Then attention was turned to the adnexa. Again the course of the ureters was noted to be away from the operative field. The right ovary was released from the infundibular pelvic ligament and pelvic brim. It was placed in a Endo Catch was introduced through the vagina and removed through the vagina intact. The same procedure was performed on the left tube and ovary. Hemostasis was noted. The pelvis was again irrigated with warm normal saline. The vagina cuff was reapproximated using V LOC 180 suture in a simple running stitch. Then using the same the LOC 180 the vaginal cuff was further secured by running suture along the cuff in the opposite direction.. Again the pelvis was copiously irrigated with polymixin in warm normal saline. The laparotomy sponge was removed from the vagina. No bowel, bladder, ureteral or major vascular injury was noted. Once hemostasis was noted, platelet rich plasma was applied to the operative field to ensure hemostasis. Then platelet poor plasma was applied to the operative field to decrease formation of adhesions. Again hemostasis was noted. Then the instruments were removed, the robot was disengaged. The 12 mm trocar was removed and the fascia was ligated with the 0 Vicryl suture that was placed at the beginning of the procedure. The patient was taken out of Trendelenburg position, the abdomen was desufflated, the remaining trochars were removed. Incisions were reapproximated using 4-0 Vicryl in a subcuticular manner. Incisions were infused with half percent Marcaine without epinephrine and Surgiseal was placed over the incisions. The vagina was then inspected, no bleeding was noted and clear yellow urine was draining into the Blackman bag from the bladder at the end of the procedure. Patient was taken to recovery room in stable condition.
[2018-02-05] MEDS ORDERED: APRESOLINE IV ONE (12:00)
[2018-02-05] MEDS ORDERED: NARCAN 0.4 MG/1 ML IV PRN (12:35)
[2018-02-05] MEDS ORDERED: PERCOCET 5/325 PO PRN (12:35)
[2018-02-05] MEDS ORDERED: REGLAN PO PRN (12:35)
[2018-02-05] MEDS ORDERED: REGLAN IV PRN (12:35)
[2018-02-05] MEDS ORDERED: ZOFRAN IV PRN (12:35)
[2018-02-05] MEDS ORDERED: TYLENOL PR PRN (12:35)
[2018-02-05] MEDS: MORPHINE IV PRN ×2 (13:10→19:22)
[2018-02-05] MEDS ORDERED: LACTATED RINGERS 1,000 ML IV SCH (13:35)
[2018-02-05] MEDS ORDERED: ceFAZolin 2 GM in NACL 0.9% 20 ML IV SCH (14:00)
[2018-02-05] MEDS: TYLENOL PO SCH ×2 (15:52→21:41)
--- NOTE | 2018-02-05 16:17 | Progress Note ---
Assessment and Plan UOP clear and ~200mL/hr, will allow mcgovern to be removed, RN celenad to assess patient qhr to determine if she needs assistance to void and continue strict I/ O documentation. Patient instr'd not to ambulate w/o assistance. Patient was informed of operative findings and procedure. Plan of care was explained, questions were encouraged and answered, she voiced understanding and agrees with plan of care. - Patient Problems (1) Menorrhagia Current Visit: No Status: Resolved Qualifiers: Menorrahagia type: with irregular cycle Qualified Code(s): N92.1 - Excessive and frequent menstruation with irregular cycle (2) BMI 50.0-59.9, adult Current Visit: No Status: Chronic (3) Pelvic pain Current Visit: No Status: Chronic (4) Dyspareunia Current Visit: No Status: Chronic (5) Smoker Current Visit: No Status: Chronic Subjective - Subjective Date of service: 02/05/18 Principal diagnosis: DOS RATH/ BSO/HONG Interval history: Pt restingin bed, states mcgovern catheter is really bothering her. She desires to have it removed. She's alert and appropriately responsive. She also desires to ambulate Objective - Vital Signs Latest vital signs: Vital Signs Temp Pulse Resp BP Pulse Ox 02/05/18 13:10 20 02/05/18 12:10 97.6 F 86 18 145/86 97 02/05/18 11:53 18 02/05/18 11:45 97.9 F 74 13 148/64 96 02/05/18 11:30 77 14 156/89 96 02/05/18 11:28 25 H 02/05/18 11:15 74 24 163/95 96 02/05/18 11:10 26 H 02/05/18 11:00 71 22 186/96 97 02/05/18 10:56 20 02/05/18 10:46 22 02/05/18 10:45 62 21 169/102 99 02/05/18 10:40 73 15 174/90 95 02/05/18 10:35 61 17 154/88 97 02/05/18 10:30 68 15 159/99 97 02/05/18 10:26 96.9 F L 65 11 L 155/90 96 02/05/18 06:35 97.7 F 71 16 144/80 98 Intake and Output 02/05/18 02/05/18 02/05/18 06:59 14:59 22:59 Intake Total 300 Output Total 300 Balance 0 Intake: IV 300 Output: Urine 300 Other: Voiding Method Toilet - Exam Breasts: Present: deferred Cardiovascular: Present: Regular rate Lungs: Present: Clear to auscultation, Normal air movement Abdomen: Present: normal appearance, soft, normal bowel sounds - Labs Labs: Abnormal lab results 02/05/18 Range/Units 07:10 Carbon Dioxide 21 L (22-30) mmol/L Creatinine 0.6 L (0.7-1.2) mg/dL
[2018-02-05] MEDS: TORADOL IV SCH ×2 (16:55→22:37)
[2018-02-05] MEDS ORDERED: TYLENOL PO SCH (20:00)
[2018-02-05] MEDS ORDERED: MORPHINE IV SCH (21:00)
[2018-02-05] MEDS: PEPCID IV SCH (21:44)
[2018-02-05] MEDS: LOVENOX SUB-Q SCH (22:41)
[2018-02-06] MEDS: MORPHINE IV PRN ×2 (00:10→07:48)
[2018-02-06] MEDS: TYLENOL PO SCH (04:03)
[2018-02-06] MEDS: TORADOL IV SCH (05:15)
[2018-02-06 05:28] LABS: Hematocrit 37.8 % (30.3-42.9); Hemoglobin 12.9 gm/dl (10.1-14.3)
--- NOTE | 2018-02-06 09:59 | Discharge Summary ---
Providers - Providers Date of Admission: 02/05/18 11:08 Date of discharge: 02/06/18 Attending physician: PAU VILLATORO Primary care physician: [facility]ISTERED [facility]URSE [facility] Hospitalization Condition: Good Procedures: RATH/BSO Hospital course: uncomplicated Disposition: DC-01 TO HOME OR SELFCARE - Discharge Diagnoses (1) Menorrhagia Status: Resolved Qualifiers: Menorrahagia type: with irregular cycle Qualified Code(s): N92.1 - Excessive and frequent menstruation with irregular cycle (2) BMI 50.0-59.9, adult Status: Chronic (3) Pelvic pain Status: Chronic (4) Dyspareunia Status: Chronic (5) Smoker Status: Chronic Core Measure Documentation - Palliative Care Palliative Care/ Comfort Measures: Not Applicable - Core Measures Any of the following diagnoses?: none Exam - Constitutional Vitals: Temp Pulse Resp BP Pulse Ox 98.6 F 58 L 18 133/82 100 02/06/18 04:00 02/06/18 04:00 02/06/18 05:15 02/06/18 04:00 02/05/18 20:00 General appearance: Present: no acute distress - Neck Neck: Present: supple - Respiratory Respiratory effort: normal Respiratory: negative: CTA - Cardiovascular Rhythm: regular - Extremities Extremities: no ischemia, No edema - Abdominal General gastrointestinal: Present: soft, non-tender, normal bowel sounds - Integumentary Integumentary: Present: clear, warm, dry (incisions: c/d/i) - Musculoskeletal Musculoskeletal: strength equal bilaterally (patient was seen ambulating in alonso w/o difficulty) - Psychiatric Psychiatric: appropriate mood/affect Plan Activity: other (No sex, ambulate ~1mile on your property a day) Weight Bearing Status: Weight Bear as Tolerated Diet: regular (Eat small meals frequently, drink ~150oz water a day, void every 1-2 hours. ) Wound: open to air, keep clean and dry Special Instructions: no heavy lifting (>25#) Follow up with: PRIMARY CARE, [Primary Care Provider] - 3 Days (Call your PCP today to discuss blood pressure readings while hospitalized(140-180/80-100)) PAU VILLATORO MD [Staff Physician] - (As scheduled)
[2018-02-06] MEDS ORDERED: PROTONIX IV SCH (10:00)
[2018-02-06 10:25] VITALS: BP 144/85
[2018-02-06] MEDS: PEPCID IV SCH (11:00)
[2018-02-06] MEDS: LOVENOX SUB-Q SCH (11:00)
== END 2018-02-06 12:53 | disposition home or self-care (01) ==
LOC: OR 06:11 → OB 11:08
PROVIDERS: ADMIT Obstetrics & Gynecology; ATTEND Obstetrics & Gynecology
DX: N94.12 Deep dyspareunia (principal); N92.0 Excessive and frequent menstruation with regular cycle; F17.210 Nicotine dependence, cigarettes, uncomplicated; E66.01 Morbid (severe) obesity due to excess calories; Z80.3 Family history of malignant neoplasm of breast; Z90.722 Acquired absence of ovaries, bilateral; Z90.710 Acquired absence of both cervix and uterus; Z68.43 Body mass index [BMI] 50.0-59.9, adult
CPT/HCPCS: 36415; 58552; 80053; 81025; 85014; 85018; 85025; 86850; 86900; 86901; 88305; 88307; 93005; 93010; 96372; 96374; 96375; 96376; A4217; G0378; J0690; J1170; J1650; J1885; J2250; J2270; J2405; J2704; J2710; J3010; J7030; J7120; S2900

== ENCOUNTER 2018-07-09 09:46 | Outpatient (CLI) | payer OTHER ==
--- NOTE | 2018-07-09 11:33 | Mammography Report ---
Left mammogram: Short-term followup for a nodular asymmetry in the left breast seen on prior examination in February 2018. The nodule is circumscribed but only identified in the CC projection in the right areolar location. There is an eccentric lucency consistent with fat. The nodule measures a centimeter. It is not changed. It was not identified on ultrasound at the prior exam. Impression: Stable left nodular density. Probable lymph node. Recommendation: Annual mammogram followup. BI-RADS CATEGORY: 2 = Benign ACR BI-RADS MAMMOGRAPHIC CODES: 0 = Needs additional imaging evaluation; 1 = Negative; 2 = Benign; 3 = Probably benign; 4 = Suspicious; 5 = Malignant; 6 = Known biopsy-proven malignancy COMMENT: 1. Dense breast tissue, i.e., adenosis, fibrocystic changes, etc., may obscure an underlying neoplasm. 2. Approximately 10% of cancers are not detected with mammography. 3. A negative mammography report should not delay biopsy if a clinically suspicious mass is present.
== END 2018-07-09 09:47 | disposition home or self-care (01) ==
LOC: SPVWC 09:46
PROVIDERS: ATTEND Physician Assistant
DX: R92.8 Other abnormal and inconclusive findings on diagnostic imaging of breast (principal); G43.909 Migraine, unspecified, not intractable, without status migrainosus; E66.9 Obesity, unspecified; I10 Essential (primary) hypertension; K21.9 Gastro-esophageal reflux disease without esophagitis; F17.290 Nicotine dependence, other tobacco product, uncomplicated; Z90.89 Acquired absence of other organs; Z90.49 Acquired absence of other specified parts of digestive tract